=== PATIENT | male | born 1970 | race Caucasian/White ===

== ENCOUNTER 2023-11-01 10:27 | Emergency (ER) | payer OTHER, SELFPAY ==
[2023-11-01 10:30] VITALS: BP 114/82
[2023-11-01 11:15] VITALS: BMI 32.4
--- NOTE | 2023-11-01 11:29 | ED.GENMED ---
History of Present Illness
General
Chief Complaint: Musculo-Skeletal Complaint
Time Seen by Provider: 11/01/23 10:57
Travel History
Have you had any contact with someone who has COVID-19?: No
Do you have any symptoms of coronavirus? Fever > 100 degrees, chills, cough, shortness of breath, sore throat, loss of taste or smell, muscle aches, or headache?: No
History of Present Illness
History of Present Illness:
53-year-old male presents to the emergency department for evaluation of left anterior chest wall pain after a fall 3 days ago. States he fell from the back of a truck landing on his left side and left elbow. He has no elbow or shoulder pain
currently. Pain is worse with deep breathing. Denies any hemoptysis or dyspnea. No recent fevers or chills. Last night took 30 mg of oxycodone with mild pain relief.
Past History
Past History
ED Past Medical History: Psychiatric (Bipolar)
ED Past Surgical History: Orthopedic
Social History
Tobacco: Smoker
Alcohol: None
Drug: Marijuana
Personal: Single
Living: alone
Review of Systems
Review of Systems
Allergies reviewed?: Yes
All Other Systems: ROS reviewed and negative except as documented in HPI and ROS
Phy Exam
Physical Exam
Physical Exam:
GEN: Well appearing, NAD, WDWN
HEENT: Oral mucosa moist, no scleral icterus
Cardiac: Regular rate
Lung: No respiratory distress, no tachypnea, lungs CTAB
Chest: Tenderness to the L anterior chest wall, midclavicular line, inferior to the chest. Normal chest wall movement.
MSK: No gross deformity or injuries
Skin: Good color, no pallor or jaundice, no rashes
Neuro: AO x3, moves all extremities freely
Psych: Calm, cooperative
Course
Orders/Labs/Results
Orders:
Orders
11/01/23 10:33
Ribs, Left 3 View W/PA Chest CR [CR Ribs-left 3 Vw W/pa Chest] Urgent
Comment:
Reason For Exam: pain after a fall
Vital Signs
Initial and Last Documented VS:
Initial Vital Signs
Temp Pulse Resp BP Pulse Ox
98.3 F 99 20 114/82 100
11/01/23 10:30 11/01/23 10:30 11/01/23 10:30 11/01/23 10:30 11/01/23 10:30
Last Documented Vital Signs
Temp Pulse Resp BP Pulse Ox
98.3 F 75 18 114/82 97
11/01/23 10:30 11/01/23 11:26 11/01/23 11:26 11/01/23 10:30 11/01/23 11:26
MDM/Problems Addressed
MDM/Problems Addressed:
Independent rotation of patient's x-rays negative for osseous abnormality or pulmonary contusion. Discussed supportive care for rib contusion
*Critical Care Note
Total Time (30-74mins, 75-104mins- exclusive of procedures): Not Applicable
ED Attending Note
-
Portions of this chart may have been created with voice recognition software.� Occasional wrong word or��sound alike� substitutions may have occurred due to the inherent limitations of voice recognition software.
Discharge Plan
Departure
Patient Disposition: Home (Routine Discharge)
Date of Disposition: 11/01/23
Time of Disposition: 11:31
Patient with high blood pressure during this ER visit?: No
Discharge Problem:
Chest wall contusion
Instructions: How to Use an Incentive Spirometer, Blunt Chest Trauma ED
Prescriptions:
New
oxycodone 5 mg tablet
5 mg PO Q8H PRN (Reason: Pain) Qty: 8 0RF
methocarbamol 750 mg tablet
750 - 1,500 mg PO HS Qty: 20 0RF
No Action
Depakote
750 mg PO HS
Depakote
125 mg PO AMHS
Effexor XR
300 mg PO AMHS
Xanax
2 mg PO DAILY
lithium carbonate
900 mg PO HS
prednisone 10 mg Tablet
See Rx Instructions .ROUTE .COMPLEX Qty: 30 0RF
Rx Instructions:
Take By Mouth:
40 mg daily x3 days, 30 mg daily x3 days,
20 mg daily x3 days, 10 mg daily x3 days.
tramadol 50 mg tablet
50 mg PO Q6H PRN (Reason: pain) Qty: 14 0RF
hydrocodone-acetaminophen 5-325 mg tablet
1 tab PO Q4H PRN (Reason: pain) Qty: 4 0RF
cyclobenzaprine 10 mg tablet
10 mg PO TID PRN (Reason: muscle spasm/pain) Qty: 14 0RF
ibuprofen 600 mg tablet
600 mg PO TID PRN (Reason: fever or pain) Qty: 20 0RF
acetaminophen [Pain Relief (acetaminophen)] 500 mg tablet
1,000 mg PO TID Qty: 20 0RF
Referrals:
Tima Ramirez DO [Family Provider] -
Stand Alone Forms: Return to Work
Interventions
Interventions:
*Risk Screen - Suicide Last Done: 11/01/23 11:16
*General Assessment Last Done: 11/01/23 11:16
*Neglect/Abuse Screening Last Done: 11/01/23 11:16
ED- Fall Risk Assessment Last Done: 11/01/23 11:16
*ED COVID-19 Vaccine History Last Done: 11/01/23 11:16
*Nursing Disposition Last Done: 11/01/23 11:43
ED-Musculoskeletal Assessment Last Done: 11/01/23 11:19
Discharge Date and Time
Discharge Date/Time: 11/01/23 11:45
Print Language: DOMINICAN
== END 2023-11-01 11:45 | disposition home or self-care (01) ==
LOC: EMR 10:27
PROVIDERS: EMERGENCY PHYSICIAN Student in an Organized Health Care Education/Training Program; FAMILY PHYSICIAN Family Medicine
DX: S20.219A Contusion of unspecified front wall of thorax, initial encounter (principal); W17.89XA Other fall from one level to another, initial encounter; F17.200 Nicotine dependence, unspecified, uncomplicated
CPT/HCPCS: 99283; 71101

== ENCOUNTER → 2023-11-14 08:59 | Outpatient (REF) | payer OTHER, SELFPAY | LOC: RAD 08:59 | PROVIDERS: ATTENDING PHYSICIAN Family Medicine | DX: R07.81 Pleurodynia (principal) | CPT/HCPCS: 71101 ==

== ENCOUNTER → 2023-11-23 07:27 | Outpatient (REF) | payer OTHER, SELFPAY ==
[2023-11-23 08:34] LABS: % Eosinophils 3.5 % (0-6); % Immature Granulocytes 0.3 % (0-0.5); % Lymphocytes 38.1 % (20.5-51.1); % Monocytes 8.7 % (1.7-9.3); % Neutrophils 48.4 % (42.2-75.2); Absolute Basophils 0.1 10^3/uL (0-0.2); Absolute Eosinophils 0.2 10^3/uL (0-0.7); Absolute Lymphocytes 2.2 10^3/uL (1.2-3.4); Absolute Monocytes 0.5 10^3/uL (0.1-0.6); Absolute Neutrophils 2.8 10^3/uL (1.4-6.5); Hemoglobin 14.8 g/dL (13.0-18.0); Mean Corp Hgb Conc. 35.2 g/dL (33.0-37.0); Mean Corpuscular Hgb 31.8 pg (27.0-31.0); Mean Corpuscular Volume 90.3 fL (80.0-94.0); Mean Platelet Volume 11.3 fL (7.4-10.4); Nucleated Red Blood Cells % 0 % (-); Platelet Count 245 10^3/uL (130-400); Red Blood Cell Count 4.65 10^6/uL (4.70-6.10); Red Cell Dist. Width 11.9 % (11.5-14.5); White Blood Cell Count 5.8 10^3/uL (4.8-10.8)
[2023-11-23 08:42] LABS: Depakane 42.6 ug/ml (50.0-120.0)
[2023-11-23 08:56] LABS: ALT (SGPT) 19 U/L (0-50); AST (SGOT) 23 U/L (17-59); Albumin 4.7 g/dl (3.5-5.0); Alkaline Phosphatase 90 U/L (38-126); Blood Urea Nitrogen 11 mg/dl (9-20); Calcium 10.2 mg/dl (8.4-10.2); Carbon Dioxide 30 mmol/L (22-30); Chloride 100 mmol/L (98-107); Glucose 99 mg/dl (70-99); HDL Cholesterol 55 mg/dl; LDL Cholesterol, Calculated 138 mg/dl; Lithium 0.9 mmol/L (0.6-1.2); Potassium 4.6 mmol/L (3.5-5.1); Sodium 138 mmol/L (135-145); Total Bilirubin 0.8 mg/dl (0.2-1.3); Total Cholesterol 251 mg/dl (50-199); Total Protein 7.7 g/dl (6.3-8.2); Triglyceride 293 mg/dl (10-149); Very Low Density Lipoprotein 58 mg/dl (0-30); eGFR > 60.00
[2023-11-23 09:24] LABS: TSH 1.34 uIU/ml (0.47-4.68)
[2023-11-23 09:52] LABS: Glycohemoglobin (HgbA1c) 4.9 % (4.0-5.6)
== END ==
LOC: REG 07:27
PROVIDERS: ATTENDING PHYSICIAN Psychiatry & Neurology Psychiatry; FAMILY PHYSICIAN Family Medicine
DX: Z79.899 Other long term (current) drug therapy (principal)
CPT/HCPCS: 36415; 80053; 80061; 80164; 80178; 83036; 84443; 85025

== ENCOUNTER 2023-11-23 08:03 | Emergency (ER) | payer OTHER, SELFPAY ==
[2023-11-23 08:06] VITALS: BP 131/73
--- NOTE | 2023-11-23 08:09 | ED.GENMED ---
History of Present Illness
General
Chief Complaint: Fall
Time Seen by Provider: 11/23/23 08:09
Travel History
Have you had any contact with someone who has COVID-19?: No
Do you have any symptoms of coronavirus? Fever > 100 degrees, chills, cough, shortness of breath, sore throat, loss of taste or smell, muscle aches, or headache?: No
History of Present Illness
History of Present Illness:
HPI: Patient was seen in the ED at [place] on 11/01/2023 after a fall in which he injured the chest wall on 10/29/2023. [facility] has had 2 rib series/chest x-ray which showed old fractures. The pain persists.. He
states he has been taking narcotic analgesia but no longer is taking tramadol or oxycodone. He was also on a muscle relaxer but also states he is no longer taking this. He sleeps in his car and feels that this is a contributing factor for ongoing
pain.
EXAM:
GENERAL: Well appearing in no distress
CERVICAL SPINE: No midline c-spine tenderness with excellent AROM
HEAD: No evidence of craniofacial trauma
CHEST: There is posterior lateral chest wall tenderness, normal heart sounds
LUNGS: Equal lung sounds, no respiratory distress, no abnormal lung sounds heard
ABDOMEN: No abdominal tenderness, no peritoneal signs
EXTREMITIES: Normal active range of motion, no tenderness
NEURO: Excellent strength all extremities, appropriate mental status, normal speech/language
TIME OF INITIAL ENCOUNTER: 8:30 AM
NUMBER AND COMPLEXITY OF PROBLEMS ADDRESSED AT THE ENCOUNTER
� Chronic conditions affecting care: Bipolar disorder, PTSD
� Acute Exacerbation and/or Progression of Chronic Illness: This is a subacute problem
� Differential Diagnosis includes: Rib fractures, chest wall contusion, chronic pain syndrome, costochondritis
AMOUNT AND/OR COMPLEXITY OF DATA TO BE REVIEWED AND ANALYZED
� I performed an independent evaluation of and my interpretation is:
EKG:
CT:
X-rays:
Laboratory Studies:
Other:
� Review of other/old records: Reviewed x-rays�on 421 multiple old healed rib fractures were seen on the left side however radiology cannot rule out a superimposed acute fracture. The patient also had a chest/rib x-ray 11/14/2023
that again showed old healed left rib fractures. Of note, patient had 2 ED visits last year and had chest wall imaging plain films in December 2022 and January 2023.
� Clinical information was obtained by an independent historian: None needed
� Prescriptions/Medications Considered but not given: Consider narcotic analgesia however the symptoms started 3-1/2 weeks ago and has already been on narcotic
� Further testing considered but not performed: See below
RISK OF COMPLICATIONS AND/OR MORBIDITY OR MORTALITY OF PATIENT MANAGEMENT
� Social determinants of health affecting care: The patient is homeless 'and has no money', however he does have insurance
� Discussion with other providers:
� Escalation of care including admission/observation vs risk of discharge considered: I reviewed old records. He has had 2 imaging studies in the past. The initial incident occurred 3-1/2 weeks ago therefore we will hold off on
any further imaging at this time. Breath sounds are clear and equal with room air sats of 98%. Will try lidocaine patch and Flexeril.
Past History
Past History
ED Past Medical History: Psychiatric (Bipolar)
ED Past Surgical History: Orthopedic
Social History
Tobacco: Smoker
Alcohol: None
Drug: Marijuana
Personal: Single
Living: alone
Phy Exam
Physical Exam
Physical Exam:
See HPI
Course
Orders/Labs/Results
Orders:
Orders
11/23/23 08:35
Cyclobenzaprine HCl [Flexeril] 10 mg PO NOW STA
Lidocaine [Lidocaine 4% Patch] 1 patch TOPICAL NOW STA
Vital Signs
Initial and Last Documented VS:
Initial Vital Signs
Temp Pulse Resp BP Pulse Ox
98.1 F 60 16 131/73 98
11/23/23 08:06 11/23/23 08:06 11/23/23 08:06 11/23/23 08:06 11/23/23 08:06
Last Documented Vital Signs
Temp Pulse Resp BP Pulse Ox
98.1 F 60 16 131/73 98
11/23/23 08:06 11/23/23 08:06 11/23/23 08:06 11/23/23 08:06 11/23/23 08:06
*Critical Care Note
Total Time (30-74mins, 75-104mins- exclusive of procedures): Not Applicable
ED Attending Note
-
Portions of this chart may have been created with voice recognition software.� Occasional wrong word or��sound alike� substitutions may have occurred due to the inherent limitations of voice recognition software.
Discharge Plan
Departure
Patient Disposition: Home (Routine Discharge)
Date of Disposition: 11/23/23
Time of Disposition: 08:36
Patient with high blood pressure during this ER visit?: Yes
Discharge Problem:
Chest wall pain
Instructions: Blunt Chest Trauma (DC)
Prescriptions:
New
cyclobenzaprine 10 mg tablet
10 mg PO BID PRN (Reason: pain) Qty: 14 0RF
lidocaine [Lidoderm] 5 % adhesive patch,medicated
1 patch topical DAILY Qty: 15 0RF
No Action
Depakote
750 mg PO HS
Depakote
125 mg PO AMHS
Effexor XR
300 mg PO AMHS
Xanax
2 mg PO DAILY
lithium carbonate
900 mg PO HS
prednisone 10 mg Tablet
See Rx Instructions .ROUTE .COMPLEX Qty: 30 0RF
Rx Instructions:
Take By Mouth:
40 mg daily x3 days, 30 mg daily x3 days,
20 mg daily x3 days, 10 mg daily x3 days.
tramadol 50 mg tablet
50 mg PO Q6H PRN (Reason: pain) Qty: 14 0RF
hydrocodone-acetaminophen 5-325 mg tablet
1 tab PO Q4H PRN (Reason: pain) Qty: 4 0RF
cyclobenzaprine 10 mg tablet
10 mg PO TID PRN (Reason: muscle spasm/pain) Qty: 14 0RF
ibuprofen 600 mg tablet
600 mg PO TID PRN (Reason: fever or pain) Qty: 20 0RF
acetaminophen [Pain Relief (acetaminophen)] 500 mg tablet
1,000 mg PO TID Qty: 20 0RF
oxycodone 5 mg tablet
5 mg PO Q8H PRN (Reason: Pain) Qty: 8 0RF
methocarbamol 750 mg tablet
750 - 1,500 mg PO HS Qty: 20 0RF
Activity Restrictions/Additional Instructions:
If you take the lidocaine patches, use only in the daytime and take off at night. Return here if worse. Follow-up your primary care doctor.
Interventions
Interventions:
*Risk Screen - Suicide Last Done: 11/23/23 08:14
*General Assessment Last Done: 11/23/23 08:34
*Neglect/Abuse Screening Last Done: 11/23/23 08:14
ED- Fall Risk Assessment Last Done: 11/23/23 08:14
*ED COVID-19 Vaccine History Last Done: 11/23/23 08:06
ED-Musculoskeletal Assessment Last Done: 11/23/23 08:14
ED- Neurological Assessment Last Done: 11/23/23 08:14
ED-Skin Assessment Last Done: 11/23/23 08:14
Discharge Date and Time
Print Language: WOLOF
[2023-11-23] MEDS: LIDOCAINE 4% PATCH 1 PATCH TOPICAL (08:44)
[2023-11-23] MEDS: FLEXERIL 10 MG PO (08:44)
== END 2023-11-23 08:53 | disposition home or self-care (01) ==
LOC: EMR 08:03
PROVIDERS: EMERGENCY PHYSICIAN Emergency Medicine; FAMILY PHYSICIAN Family Medicine
DX: R07.89 Other chest pain (principal); F17.200 Nicotine dependence, unspecified, uncomplicated; Z59.02 Unsheltered homelessness
CPT/HCPCS: 99283

== ENCOUNTER 2023-12-25 16:06 | Emergency (ER) | payer OTHER, SELFPAY ==
[2023-12-25 16:15] VITALS: BP 120/88
[2023-12-25 17:38] VITALS: BMI 32.8
--- NOTE | 2023-12-25 17:38 | ED.GENMED ---
History of Present Illness
General
Chief Complaint: Swelling
Source: patient
Exam Limitations: none
Time Seen by Provider: 12/25/23 17:28
Travel History
Have you had any contact with someone who has COVID-19?: No
Do you have any symptoms of coronavirus? Fever > 100 degrees, chills, cough, shortness of breath, sore throat, loss of taste or smell, muscle aches, or headache?: No
History of Present Illness
History of Present Illness:
53-year-old male with bilateral leg swelling for weeks. Has been walking significantly. Has been living out of his car. No chest pain shortness of breath fever or other complaints. Seen in urgent care and started on antibiotics for unknown reason
Past History
Past History
ED Past Medical History: Psychiatric (Bipolar)
ED Past Surgical History: Orthopedic
Social History
Tobacco: Smoker
Alcohol: None
Drug: Marijuana
Personal: Single
Living: alone
Review of Systems
Review of Systems
All Other Systems: Not applicable
Constitutional: Denies fever
Respiratory: Reports no symptoms
Cardiac: Reports no symptoms
Phy Exam
Physical Exam
Physical Exam:
GENERAL: Alert and oriented in no apparent distress. Reading a book
EYE: Orbits normal.
NECK: Supple, no thyroid palpable.
ENT: Pharynx without erythema
CARDIAC: Regular rate and rhythm without any obvious murmurs.
LUNGS: Clear breath sounds,normal
ABDOMEN: Soft, without focal tenderness or distention
NEUROLOGICAL: Alert and oriented , grossly non-focal
SKIN: Warm and dry, no rash or lesion, no discoloration, skin intact.
MUSCULOSKELETAL: Mild to moderate lower extremity edema bilaterally. Mildly pitting. No warmth or erythema. No drainage.
PSYCH: Normal and appropriate interaction.
Scores
Heart Failure Risk
Heart Failure Risk Score: Not Applicable
Course
Orders/Labs/Results
Orders:
Orders
12/25/23 17:33
Urinalysis Reflex To Culture Urgent
Pulse Ox/cont/shift [RESP] Stat
Quantity: 1
US Periph Venous LOWER Ext Jose Urgent
Comment:
Reason For Exam: swelling
12/25/23 17:34
Electrocardiogram (*1) Stat
Reason for Study: Other
Other Reason for Exam: chest pain
EKG- Treatment ONCE
CR Chest - 2 Views Urgent
Comment:
Reason For Exam: leg swelling
12/25/23 17:53
Basic Metabolic Panel Urgent
Complete Blood Count/With Diff Urgent
TSH Reflex To Free T4 Urgent
Abnormal Lab Results
12/25/23
17:53
RBC 3.66 L 10^6/uL
(4.70-6.10)
Hgb 11.7 L g/dL
(13.0-18.0)
Hct 33.2 L %
(39.0-52.0)
MCH 32.0 H pg
(27.0-31.0)
MPV 10.9 H fL
(7.4-10.4)
BUN 23 H mg/dl
(9-20)
12/25/23 17:53
12/25/23 17:53
Vital Signs
Initial and Last Documented VS:
Initial Vital Signs
Temp Pulse Resp BP Pulse Ox
98.1 F 94 18 120/88 95
12/25/23 16:15 12/25/23 16:15 12/25/23 16:15 12/25/23 16:15 12/25/23 16:15
Last Documented Vital Signs
Temp Pulse Resp BP Pulse Ox
98.1 F 67 18 138/70 95
12/25/23 16:15 12/25/23 19:10 12/25/23 16:15 12/25/23 19:10 12/25/23 19:10
MDM/Problems Addressed
Differential Diagnosis Includes:
Patient nontoxic in no distress. Differential bilateral edema. Doubt bilateral DVT. Renal function thyroids urine for protein
*Radiology
Radiology exam reviewed: preliminary read by ED provider (Negative chest x-ray) and radiology read reviewed (neg us)
*Pulse Oximetry
Patient hypoxic: no
*EKG
Interpreted by ED Provider?: Yes
Interpretation: normal
Comparison EKG: no comparison EKG present
Heart Rate: 65
Rate: normal
Rhythm: sinus
[place]: normal axis
Interval: normal interval
QRS Pattern: normal QRS
Ischemia: no ischemia
*Critical Care Note
Total Time (30-74mins, 75-104mins- exclusive of procedures): Not Applicable
Update Note
Update Note:
Assuming leg ultrasounds are negative, patient's peripheral edema is likely related to the heat, all walking a lot, having his feet down below in the car. Nothing supports serious etiology. Not thrilled with the idea of starting a diuretic.
Recommended compression stockings and follow-up. Patient is comfortable with this approach. He apparently did mention to the nurse or was positive on the screen for suicidal ideation. He states he gets help for this has no plan or intent promises
that he would not do anything and would call the hotline with any issues. He states 'I love my daughter too much '. Do not feel this warrants emergent crisis intervention.
ED Attending Note
-
Portions of this chart may have been created with voice recognition software.� Occasional wrong word or��sound alike� substitutions may have occurred due to the inherent limitations of voice recognition software.
Discharge Plan
Departure
Patient Disposition: Home (Routine Discharge)
Date of Disposition: 12/25/23
Time of Disposition: 19:27
Patient with high blood pressure during this ER visit?: Yes
Discharge Problem:
Peripheral edema
Instructions: Dependent Edema (DC), BLOOD PRESSURE
Prescriptions:
No Action
Depakote
750 mg PO HS
Depakote
125 mg PO AMHS
Effexor XR
300 mg PO AMHS
Xanax
2 mg PO DAILY
lithium carbonate
900 mg PO HS
prednisone 10 mg Tablet
See Rx Instructions .ROUTE .COMPLEX Qty: 30 0RF
Rx Instructions:
Take By Mouth:
40 mg daily x3 days, 30 mg daily x3 days,
20 mg daily x3 days, 10 mg daily x3 days.
tramadol 50 mg tablet
50 mg PO Q6H PRN (Reason: pain) Qty: 14 0RF
hydrocodone-acetaminophen 5-325 mg tablet
1 tab PO Q4H PRN (Reason: pain) Qty: 4 0RF
cyclobenzaprine 10 mg tablet
10 mg PO TID PRN (Reason: muscle spasm/pain) Qty: 14 0RF
ibuprofen 600 mg tablet
600 mg PO TID PRN (Reason: fever or pain) Qty: 20 0RF
acetaminophen [Pain Relief (acetaminophen)] 500 mg tablet
1,000 mg PO TID Qty: 20 0RF
oxycodone 5 mg tablet
5 mg PO Q8H PRN (Reason: Pain) Qty: 8 0RF
methocarbamol 750 mg tablet
750 - 1,500 mg PO HS Qty: 20 0RF
cyclobenzaprine 10 mg tablet
10 mg PO BID PRN (Reason: pain) Qty: 14 0RF
lidocaine [Lidoderm] 5 % adhesive patch,medicated
1 patch topical DAILY Qty: 15 0RF
Referrals:
Tima Ramirez DO [Family Provider] - Follow up in 2-3 days
Interventions
Interventions:
*Risk Screen - Suicide Last Done: 12/25/23 17:38
*General Assessment Last Done: 12/25/23 17:38
*Neglect/Abuse Screening Last Done: 12/25/23 17:38
ED- Fall Risk Assessment Last Done: 12/25/23 17:38
*ED COVID-19 Vaccine History Last Done: 12/25/23 16:15
ED- Cardiac Assessment Last Done: 12/25/23 17:38
ED- Pulmonary Assessment Last Done: 12/25/23 17:38
ED-Skin Assessment Last Done: 12/25/23 17:38
Discharge Date and Time
Print Language: WALLISIAN
[2023-12-25 17:39] VITALS: BP 126/71
[2023-12-25 18:02] LABS: % Basophils 0.5 % (0-2); % Eosinophils 3.1 % (0-6); % Immature Granulocytes 0.5 % (0-0.5); % Lymphocytes 31.8 % (20.5-51.1); % Monocytes 9.3 % (1.7-9.3); % Neutrophils 54.8 % (42.2-75.2); Absolute Eosinophils 0.2 10^3/uL (0-0.7); Absolute Lymphocytes 1.7 10^3/uL (1.2-3.4); Absolute Monocytes 0.5 10^3/uL (0.1-0.6); Hematocrit 33.2 % (39.0-52.0); Hemoglobin 11.7 g/dL (13.0-18.0); Mean Corp Hgb Conc. 35.2 g/dL (33.0-37.0); Mean Corpuscular Volume 90.7 fL (80.0-94.0); Mean Platelet Volume 10.9 fL (7.4-10.4); Nucleated Red Blood Cells % 0 % (-); Platelet Count 181 10^3/uL (130-400); Red Blood Cell Count 3.66 10^6/uL (4.70-6.10); Red Cell Dist. Width 12.3 % (11.5-14.5); White Blood Cell Count 5.5 10^3/uL (4.8-10.8)
[2023-12-25 18:20] LABS: Blood Urea Nitrogen 23 mg/dl (9-20); Calcium 9.8 mg/dl (8.4-10.2); Carbon Dioxide 28 mmol/L (22-30); Chloride 104 mmol/L (98-107); Estimated Creatinine Clearance 101 ml/min; Glucose 93 mg/dl (70-99); Potassium 4.1 mmol/L (3.5-5.1); Sodium 139 mmol/L (135-145); eGFR > 60.00
[2023-12-25 18:51] LABS: TSH Reflex To Free T4 0.71 uIU/ml (0.47-4.68)
[2023-12-25 19:10] VITALS: BP 138/70
== END 2023-12-25 19:40 | disposition home or self-care (01) ==
LOC: EMR 16:06
PROVIDERS: EMERGENCY PHYSICIAN Emergency Medicine; FAMILY PHYSICIAN Family Medicine
DX: R60.0 Localized edema (principal); F17.200 Nicotine dependence, unspecified, uncomplicated; R03.0 Elevated blood-pressure reading, without diagnosis of hypertension; Z59.02 Unsheltered homelessness
CPT/HCPCS: 99285; 71046; 80048; 84443; 85025; 93005; 93970

== ENCOUNTER → 2024-01-11 10:24 | Outpatient (REF) | payer OTHER, SELFPAY ==
[2024-01-11 11:29] LABS: % Eosinophils 3.7 % (0-6); % Immature Granulocytes 0.5 % (0-0.5); % Lymphocytes 35.9 % (20.5-51.1); % Monocytes 6.2 % (1.7-9.3); % Neutrophils 52.7 % (42.2-75.2); Absolute Basophils 0.1 10^3/uL (0-0.2); Absolute Eosinophils 0.2 10^3/uL (0-0.7); Absolute Lymphocytes 2.3 10^3/uL (1.2-3.4); Absolute Monocytes 0.4 10^3/uL (0.1-0.6); Absolute Neutrophils 3.3 10^3/uL (1.4-6.5); Hematocrit 38.8 % (39.0-52.0); Hemoglobin 13.3 g/dL (13.0-18.0); Mean Corp Hgb Conc. 34.3 g/dL (33.0-37.0); Mean Corpuscular Hgb 32.1 pg (27.0-31.0); Mean Corpuscular Volume 93.7 fL (80.0-94.0); Mean Platelet Volume 11.3 fL (7.4-10.4); Nucleated Red Blood Cells % 0 % (-); Platelet Count 184 10^3/uL (130-400); Red Blood Cell Count 4.14 10^6/uL (4.70-6.10); Red Cell Dist. Width 12.6 % (11.5-14.5); White Blood Cell Count 6.3 10^3/uL (4.8-10.8)
[2024-01-11 11:55] LABS: Iron 81 ug/dl (49-181)
[2024-01-11 11:59] LABS: NT-proBNP 32.7 pg/ml
[2024-01-11 12:04] LABS: Percent Saturation 25 % (20-50); Total Iron Binding Capacity 312 ug/dl (261-462)
[2024-01-11 13:00] LABS: Folate 5.4 ng/ml (2.76-20)
[2024-01-11 14:00] LABS: Vitamin B12 623 pg/ml (239-931)
== END ==
LOC: REG 10:24
PROVIDERS: ATTENDING PHYSICIAN Family Medicine
DX: R60.0 Localized edema (principal); D64.9 Anemia, unspecified
CPT/HCPCS: 36415; 82607; 82728; 82746; 83540; 83550; 83880; 85025

== ENCOUNTER 2024-03-01 10:25 | Emergency (ER) | payer OTHER, SELFPAY ==
[2024-03-01 10:51] VITALS: BP 128/82
--- NOTE | 2024-03-01 11:05 | ED.GENMED ---
History of Present Illness
<Ynes Grijalva PA-C - Last Filed: 03/01/24 13:56>
General
Chief Complaint: Swelling
Source: patient
Exam Limitations: none
Time Seen by Provider: 03/01/24 11:05
Nursing documentation reviewed up to this point in time: agreed with
History of Present Illness
History of Present Illness:
This is a 54 y/o male with a PMH of bipolar disorder, PTSD, tobacco use disorder, presenting to the emergency department today with concerns of bilateral leg swelling that has been going on for the past few months. Patient states that this started
a few months after he started living in his car. 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 Patient notes some discomfort with ambulating but denies leg redness, warmth, fevers or chills, calf pain. He
denies nausea, vomiting, dysuria, abdominal pain, chest pain, shortness of breath. Aside from arthritis and psychiatric illness, patient denies chronic medical conditions such as HTN, diabetes etc. Patient states that he has been elevating his legs
every night without relief. Patient states that he has not tried compression leggings because he believes they are too tight and uncomfortable. Patient denies any rashes.
Past History
<Ynes Grijalva PA-C - Last Filed: 03/01/24 13:56>
Past History
ED Past Medical History: Psychiatric (Bipolar)
ED Past Surgical History: Orthopedic
Social History
Tobacco: Smoker
Alcohol: None
Drug: Marijuana
Personal: Single
Living: alone
Review of Systems
<DEDE Muhammad Last Filed: 03/01/24 13:56>
Review of Systems
All Other Systems: ROS reviewed and negative except as documented in HPI and ROS
Phy Exam
<Ynes Grijalva PA-C - Last Filed: 03/01/24 13:56>
Physical Exam
Physical Exam:
General: Patient is well appearing and in no acute distress; non-toxic
Skin: Warm and dry, no rashes or lesions, no erythema. Brisk capillary refill bilaterally.
Head: Normocephalic, atraumatic
Eyes: Sclera non-icteric. EOMs intact.
Cardiac: Regular rate and rhythm, no murmurs.
Peripheral Vascular: Bilateral lower extremity edema, mild pitting on the dorsum of the feet bilaterally.
Pulm: Normal respiratory effort, no wheezes, rales, crackles bilaterally.
Musculoskeletal: Full ROM of bilateral lower extremities.
Neuro: CN II-XII intact, no focal neurologic deficits.
Psychiatric: Appropriate mood and affect.
Scores
<Ynes Grijalva PA-C - Last Filed: 03/01/24 13:56>
Heart Failure Risk
Heart Failure Risk Score: Not Applicable
Course
<Ynes Grijalva PA-C - Last Filed: 03/01/24 13:56>
Orders/Labs/Results
Orders:
Orders
03/01/24 11:01
CMP [Comprehensive Metabolic Panel] Urgent
Complete Blood Count/With Diff Urgent
NT-proBNP Urgent
TSH Reflex To Free T4 Urgent
Comment: ADD ON
03/01/24 12:01
Add On- LAB Urgent
Tests Added?: TSH reflex to T4
03/01/24 12:29
Urinalysis Reflex To Culture Urgent
Date Specimen was Collected: 03/01/24
Time Specimen was Collected: 12:18
Abnormal Lab Results
03/01/24
11:01
RBC 4.05 L 10^6/uL
(4.70-6.10)
Hgb 12.7 L g/dL
(13.0-18.0)
Hct 37.7 L %
(39.0-52.0)
MCH 31.4 H pg
(27.0-31.0)
MPV 10.8 H fL
(7.4-10.4)
Potassium 5.3 H mmol/L
(3.5-5.1)
Carbon Dioxide 32 H mmol/L
(22-30)
03/01/24 11:01
03/01/24 11:01
Vital Signs
Initial and Last Documented VS:
Initial Vital Signs
Temp Pulse Resp BP Pulse Ox
98.0 F 73 16 128/82 96
03/01/24 10:51 03/01/24 10:51 03/01/24 10:51 03/01/24 10:51 03/01/24 10:51
Last Documented Vital Signs
Temp Pulse Resp BP Pulse Ox
98.0 F 61 16 119/72 98
03/01/24 10:51 03/01/24 12:32 03/01/24 12:32 03/01/24 12:32 03/01/24 12:32
<Clair Rivera, DO - Last Filed: 03/01/24 13:33>
Orders/Labs/Results
Orders:
Orders
03/01/24 11:01
CMP [Comprehensive Metabolic Panel] Urgent
Complete Blood Count/With Diff Urgent
NT-proBNP Urgent
TSH Reflex To Free T4 Urgent
Comment: ADD ON
03/01/24 12:01
Add On- LAB Urgent
Tests Added?: TSH reflex to T4
03/01/24 12:29
Urinalysis Reflex To Culture Urgent
Date Specimen was Collected: 03/01/24
Time Specimen was Collected: 12:18
Abnormal Lab Results
03/01/24
11:01
RBC 4.05 L 10^6/uL
(4.70-6.10)
Hgb 12.7 L g/dL
(13.0-18.0)
Hct 37.7 L %
(39.0-52.0)
MCH 31.4 H pg
(27.0-31.0)
MPV 10.8 H fL
(7.4-10.4)
Potassium 5.3 H mmol/L
(3.5-5.1)
Carbon Dioxide 32 H mmol/L
(22-30)
03/01/24 11:01
03/01/24 11:01
Vital Signs
Initial and Last Documented VS:
Initial Vital Signs
Temp Pulse Resp BP Pulse Ox
98.0 F 73 16 128/82 96
03/01/24 10:51 03/01/24 10:51 03/01/24 10:51 03/01/24 10:51 03/01/24 10:51
Last Documented Vital Signs
Temp Pulse Resp BP Pulse Ox
98.0 F 61 16 119/72 98
03/01/24 10:51 03/01/24 12:32 03/01/24 12:32 03/01/24 12:32 03/01/24 12:32
Gladyslt;Ynes Grijalva PA-C - Last Filed: 03/01/24 13:56>
MDM/Problems Addressed
Differential Diagnosis Includes:
ddx include CHF, peripheral vascular disease, chronic venous stasis, nephrotic syndrome, DVT, cellulitis, hypothyroidism
MDM/Problems Addressed:
Bilateral leg swelling
This is a 54 y/o male with a PMH of bipolar disorder, PTSD presenting to the emergency department today with concerns of bilateral leg swelling that has been going on for the past few months. Patient was most recently seen in our ER on 12/25/23 and
had a unremarkable workup, his leg swelling was attributed to chronic venous stasis. Patient was recommended to use compression stockings, patient states that compression stockings are to tight for him. Today, he continues with the swelling and
denies CP, shortness of breath, urinary changes, other associated symptoms. His CBC and CMP are unremarkable. Urinalysis does not show any proteinuria. I suspect patient's swelling is a result of chronic venous stasis. Will start on short course of
lasix and have him follow up with his primary care provider, did also give him referral for [facility] considering patient has not been happy with his care recently. Patient stable for discharge, return precautions discussed.
Chronic conditions affecting care:
PTSD, bipolar disorder
<Ynes Grijalva PA-C - Last Filed: 03/01/24 13:56>
*Pulse Oximetry
Patient hypoxic: no
*Critical Care Note
Total Time (30-74mins, 75-104mins- exclusive of procedures): Not Applicable
Data Reviewed
Review of Other/Old Records Reveals: Records (reviewed ER physician documentation from 12/25/23, reviewed documentation from 11/23/23)
Source: patient and records
Further Testing Considered But Not Given:
Considered CXR however patient denies shortness of breath and has clear lung sounds on exam
<Ynes Grijalva PA-C - Last Filed: 03/01/24 13:56>
Patient Management
Social determinants of health affecting care: Living situation and Poor social support
ED Attending Note
<Ynes Grijalva PA-C - Last Filed: 03/01/24 13:56>
-
Portions of this chart may have been created with voice recognition software.� Occasional wrong word or��sound alike� substitutions may have occurred due to the inherent limitations of voice recognition software.
<Clair Rivera DO - Last Filed: 03/01/24 13:33>
ED Attending Note
Patient seen and examined by attending physician: Yes
I performed the substantive portion of visit, reviewed & personally made and approve the management plan that is documented in note by myself or STEVEN.: Yes
I performed a history and physical exam of patient and discussed management with resident, I reviewed resident's note and agree with documented findings and plan of care.: Yes
ED Attending Note:
Patient seen and examined at bedside, 54-year-old male with history of homelessness and lower extremity swelling presenting for lower extremity swelling. Patient reports he was at a lunch and prior to arrival and someone noticed that his legs were
swollen. Patient reports his legs been swollen for the past 3 months. Patient previously been seen in the hospital in December, had unremarkable workup with negative DVT ultrasound and chest x-ray imaging. Patient was told to elevate his legs and use
compression socks for dependent edema. Patient reports that he lives in his car, sleeps with his legs on the dashboard. He has not followed primary care doctor chest pain difficulty breathing. Denies numbness or tingling to his extremities.
Denies fever or systemic symptoms.
Vital signs are normal. On exam, patient has symmetrical swelling to bilateral lower extremities. +1-2 pitting edema. No significant reproducible tenderness. No erythema or warmth. Distal sensation and pulses intact. Patient initially seen by
STEVEN, screening laboratory analysis unremarkable. Patient without any respiratory symptoms, unremarkable pulmonary centimeters, without concern for CHF. Again the swelling is symmetric, no DVT risk factors, recent negative DVT ultrasound, without
concern for DVT. No erythema or cellulitic changes, again without concern for infection. Continue to suspect dependent edema. Conversation had with patient regarding importance of elevation. Patient has been noncompliant with compression socks.
Advised using compression socks. Patient would like to proceed with using a diuretic. Explained that we will prescribe for 1 week, however will require to follow-up with primary care doctor. Patient reports he will do so. Otherwise feel stable
for discharge. Return precautions discussed and patient verbalized understanding.
Discharge Plan
Departure
Patient Disposition: Home (Routine Discharge)
Date of Disposition: 03/01/24
Time of Disposition: 13:24
Patient with high blood pressure during this ER visit?: Yes
Condition: Good
Discharge Problem:
Localized swelling, mass and lump, lower limb, bilateral
Instructions: Swelling, BLOOD PRESSURE
Prescriptions:
New
furosemide [Lasix] 20 mg tablet
20 mg PO DAILY 7 Days Qty: 7 0RF
No Action
Depakote
750 mg PO HS
Depakote
125 mg PO AMHS
Effexor XR
300 mg PO AMHS
Xanax
2 mg PO DAILY
lithium carbonate
900 mg PO HS
prednisone 10 mg Tablet
See Rx Instructions .ROUTE .COMPLEX Qty: 30 0RF
Rx Instructions:
Take By Mouth:
40 mg daily x3 days, 30 mg daily x3 days,
20 mg daily x3 days, 10 mg daily x3 days.
tramadol 50 mg tablet
50 mg PO Q6H PRN (Reason: pain) Qty: 14 0RF
hydrocodone-acetaminophen 5-325 mg tablet
1 tab PO Q4H PRN (Reason: pain) Qty: 4 0RF
cyclobenzaprine 10 mg tablet
10 mg PO TID PRN (Reason: muscle spasm/pain) Qty: 14 0RF
ibuprofen 600 mg tablet
600 mg PO TID PRN (Reason: fever or pain) Qty: 20 0RF
acetaminophen [Pain Relief (acetaminophen)] 500 mg tablet
1,000 mg PO TID Qty: 20 0RF
oxycodone 5 mg tablet
5 mg PO Q8H PRN (Reason: Pain) Qty: 8 0RF
methocarbamol 750 mg tablet
750 - 1,500 mg PO HS Qty: 20 0RF
cyclobenzaprine 10 mg tablet
10 mg PO BID PRN (Reason: pain) Qty: 14 0RF
lidocaine [Lidoderm] 5 % adhesive patch,medicated
1 patch topical DAILY Qty: 15 0RF
Referrals:
[facility] [Provider Group] - Call in 1-3 days for appt
Activity Restrictions/Additional Instructions:
Please follow up with your primary care provider or the [facility].
Please start taking Lasix. Please take one tablet once daily for one week.
Please use compression leggins and continue to elevate your legs.
Return emergency department should you experience shortness of breath, chest pain, lightheadedness, changes in your urinary function, dizziness, confusion, difficulty speaking, fevers or chills, redness or rashes, or any other symptoms concerning to
you.
Interventions
Interventions:
*Risk Screen - Suicide Last Done: 03/01/24 11:15
*General Assessment Last Done: 03/01/24 10:51
*Neglect/Abuse Screening Last Done: 03/01/24 11:15
ED- Fall Risk Assessment Last Done: 03/01/24 11:15
*ED COVID-19 Vaccine History Last Done: 03/01/24 10:51
*Nursing Disposition Last Done: 03/01/24 13:37
ED- Cardiac Assessment Last Done: 03/01/24 11:15
ED- Pulmonary Assessment Last Done: 03/01/24 11:15
ED-Skin Assessment Last Done: 03/01/24 11:15
Discharge Date and Time
Discharge Date/Time: 03/01/24 13:37
Print Language: SWEDISH
[2024-03-01 11:19] LABS: % Basophils 0.9 % (0-2); % Eosinophils 4.3 % (0-6); % Immature Granulocytes 0.4 % (0-0.5); % Lymphocytes 33.3 % (20.5-51.1); % Monocytes 7.4 % (1.7-9.3); % Neutrophils 53.7 % (42.2-75.2); Absolute Basophils 0.1 10^3/uL (0-0.2); Absolute Eosinophils 0.2 10^3/uL (0-0.7); Absolute Lymphocytes 1.8 10^3/uL (1.2-3.4); Absolute Monocytes 0.4 10^3/uL (0.1-0.6); Absolute Neutrophils 2.8 10^3/uL (1.4-6.5); Hematocrit 37.7 % (39.0-52.0); Hemoglobin 12.7 g/dL (13.0-18.0); Mean Corp Hgb Conc. 33.7 g/dL (33.0-37.0); Mean Corpuscular Hgb 31.4 pg (27.0-31.0); Mean Corpuscular Volume 93.1 fL (80.0-94.0); Mean Platelet Volume 10.8 fL (7.4-10.4); Nucleated Red Blood Cells % 0 % (-); Platelet Count 183 10^3/uL (130-400); Red Blood Cell Count 4.05 10^6/uL (4.70-6.10); Red Cell Dist. Width 11.7 % (11.5-14.5); White Blood Cell Count 5.3 10^3/uL (4.8-10.8)
[2024-03-01 11:29] VITALS: BP 124/71
[2024-03-01 11:41] LABS: ALT (SGPT) 15 U/L (0-50); AST (SGOT) 19 U/L (17-59); Albumin 4.3 g/dl (3.5-5.0); Alkaline Phosphatase 71 U/L (38-126); Blood Urea Nitrogen 12 mg/dl (9-20); Calcium 10.2 mg/dl (8.4-10.2); Carbon Dioxide 32 mmol/L (22-30); Chloride 104 mmol/L (98-107); Glucose 99 mg/dl (70-99); NT-proBNP 45.8 pg/ml; Potassium 5.3 mmol/L (3.5-5.1); Sodium 139 mmol/L (135-145); Total Bilirubin 0.8 mg/dl (0.2-1.3); Total Protein 6.8 g/dl (6.3-8.2); eGFR > 60.00
[2024-03-01 12:32] VITALS: BP 119/72
[2024-03-01 13:07] LABS: Urine Albumin Negative (Neg - Trace); Urine Bilirubin Negative (Negative); Urine Character Clear (Clear); Urine Color Straw; Urine Glucose Negative (Negative); Urine Ketone Negative (Negative); Urine Leukocyte Negative (Negative); Urine Nitrite Negative (Negative); Urine Occult Blood Negative (Negative); Urine Specific Gravity 1.005 (<1.030); Urine Urobilinogen Negative (Neg - 1+)
== END 2024-03-01 13:37 | disposition home or self-care (01) ==
LOC: EMR 10:25
PROVIDERS: Emergency Medicine; Physician Assistant; EMERGENCY PHYSICIAN Student in an Organized Health Care Education/Training Program; FAMILY PHYSICIAN Family Medicine
DX: R22.43 Localized swelling, mass and lump, lower limb, bilateral (principal); R03.0 Elevated blood-pressure reading, without diagnosis of hypertension; F31.9 Bipolar disorder, unspecified; F17.200 Nicotine dependence, unspecified, uncomplicated; F43.10 Post-traumatic stress disorder, unspecified; Z59.02 Unsheltered homelessness
CPT/HCPCS: 99283; 80053; 81003; 83880; 84443; 85025

== ENCOUNTER → 2024-03-25 10:00 | Outpatient (REF) | payer OTHER, SELFPAY ==
[2024-03-25 11:09] LABS: Depakane 41.6 ug/ml (50.0-120.0)
[2024-03-25 11:26] LABS: ALT (SGPT) 25 U/L (0-50); AST (SGOT) 23 U/L (17-59); Albumin 4.5 g/dl (3.5-5.0); Alkaline Phosphatase 73 U/L (38-126); Blood Urea Nitrogen 15 mg/dl (9-20); Calcium 10.7 mg/dl (8.4-10.2); Carbon Dioxide 32 mmol/L (22-30); Chloride 101 mmol/L (98-107); Glucose 98 mg/dl (70-99); Potassium 4.7 mmol/L (3.5-5.1); Sodium 143 mmol/L (135-145); Total Bilirubin 0.3 mg/dl (0.2-1.3); Total Protein 7.1 g/dl (6.3-8.2); eGFR > 60.00
[2024-03-25 11:27] LABS: Lithium 0.5 mmol/L (0.6-1.2)
[2024-03-25 11:56] LABS: TSH 1.88 uIU/ml (0.47-4.68)
== END ==
LOC: REG 10:00
PROVIDERS: ATTENDING PHYSICIAN Registered Nurse Psychiatric/Mental Health
DX: Z79.899 Other long term (current) drug therapy (principal)
CPT/HCPCS: 36415; 80053; 80164; 80178; 84443

== ENCOUNTER 2024-05-21 15:32 | Emergency (ER) | payer OTHER, SELFPAY ==
[2024-05-21 15:32] VITALS: BP 110/68
[2024-05-21] MEDS: TORADOL 30 MG IM (16:09)
--- NOTE | 2024-05-21 16:23 | ED.GENMED ---
History of Present Illness
General
Chief Complaint: Generalized Pain
Time Seen by Provider: 05/21/24 15:54
History of Present Illness
History of Present Illness:
54-year-old male presents to the emergency department for evaluation of left foot pain. Is been ongoing for close to 2 weeks. He admits he is homeless and walks frequently throughout the day. States that due to his homelessness he does not have
access to ice or elevation
Past History
Past History
ED Past Medical History: Psychiatric (Bipolar)
ED Past Surgical History: Orthopedic
Social History
Tobacco: Smoker
Alcohol: None
Drug: Marijuana
Personal: Single
Living: alone
Review of Systems
Review of Systems
Allergies reviewed?: Yes
All Other Systems: ROS reviewed and negative except as documented in HPI and ROS
Phy Exam
Physical Exam
Physical Exam:
GEN: Well appearing, NAD, WDWN
HEENT: Oral mucosa moist, no scleral icterus
Cardiac: Regular rate
Lung: No respiratory distress, no tachypnea
MSK: Tenderness to L plantar fascia, increased pain with forced digital extension
Skin: Good color, no pallor or jaundice, no rashes
Neuro: AO x3, moves all extremities freely
Psych: Calm, cooperative
Course
Orders/Labs/Results
Orders:
Orders
05/21/24 16:02
Ketorolac [Toradol] 30 mg IM NOW STA
Vital Signs
Initial and Last Documented VS:
Initial Vital Signs
Temp Pulse Resp BP Pulse Ox
98.0 F 87 18 110/68 95
05/21/24 15:32 05/21/24 15:32 05/21/24 15:32 05/21/24 15:32 05/21/24 15:32
Last Documented Vital Signs
Temp Pulse Resp BP Pulse Ox
98.0 F 87 18 110/68 95
05/21/24 15:32 05/21/24 15:32 05/21/24 15:32 05/21/24 15:32 05/21/24 15:32
MDM/Problems Addressed
MDM/Problems Addressed:
Discussed supportive care for plantar fasciitis. Unfortunately due to his lifting he cannot take NSAIDs routinely thus will recommend topical NSAIDs
*Critical Care Note
Total Time (30-74mins, 75-104mins- exclusive of procedures): Not Applicable
ED Attending Note
-
Portions of this chart may have been created with voice recognition software.� Occasional wrong word or��sound alike� substitutions may have occurred due to the inherent limitations of voice recognition software.
Discharge Plan
Departure
Patient Disposition: Home (Routine Discharge)
Date of Disposition: 05/21/24
Time of Disposition: 16:25
Patient with high blood pressure during this ER visit?: No
Discharge Problem:
Plantar fasciitis
Instructions: Plantar fasciitis
Prescriptions:
New
diclofenac sodium [Arthritis Pain (diclofenac)] 1 % gel
4 g topical QID Qty: 100 0RF
No Action
Depakote
750 mg PO HS
Depakote
125 mg PO AMHS
Effexor XR
300 mg PO AMHS
Xanax
2 mg PO DAILY
lithium carbonate
900 mg PO HS
prednisone 10 mg Tablet
See Rx Instructions .ROUTE .COMPLEX Qty: 30 0RF
Rx Instructions:
Take By Mouth:
40 mg daily x3 days, 30 mg daily x3 days,
20 mg daily x3 days, 10 mg daily x3 days.
tramadol 50 mg tablet
50 mg PO Q6H PRN (Reason: pain) Qty: 14 0RF
hydrocodone-acetaminophen 5-325 mg tablet
1 tab PO Q4H PRN (Reason: pain) Qty: 4 0RF
cyclobenzaprine 10 mg tablet
10 mg PO TID PRN (Reason: muscle spasm/pain) Qty: 14 0RF
ibuprofen 600 mg tablet
600 mg PO TID PRN (Reason: fever or pain) Qty: 20 0RF
acetaminophen [Pain Relief (acetaminophen)] 500 mg tablet
1,000 mg PO TID Qty: 20 0RF
oxycodone 5 mg tablet
5 mg PO Q8H PRN (Reason: Pain) Qty: 8 0RF
methocarbamol 750 mg tablet
750 - 1,500 mg PO HS Qty: 20 0RF
cyclobenzaprine 10 mg tablet
10 mg PO BID PRN (Reason: pain) Qty: 14 0RF
lidocaine [Lidoderm] 5 % adhesive patch,medicated
1 patch topical DAILY Qty: 15 0RF
furosemide [Lasix] 20 mg tablet
20 mg PO DAILY 7 Days Qty: 7 0RF
Referrals:
Tima Ramirez DO [Family Provider] -
Farooq Christopher DPM [Active] -
Interventions
Interventions:
*Risk Screen - Suicide Last Done: 05/21/24 15:32
*General Assessment Last Done: 05/21/24 15:32
*Neglect/Abuse Screening Last Done: 05/21/24 15:32
ED- Fall Risk Assessment Last Done: 05/21/24 16:58
*ED COVID-19 Vaccine History Last Done: 05/21/24 15:32
*Nursing Disposition Last Done: 05/21/24 16:58
Discharge Date and Time
Discharge Date/Time: 05/21/24 17:47
Print Language: LITHUANIAN
== END 2024-05-21 17:47 | disposition home or self-care (01) ==
LOC: EMR 15:32
PROVIDERS: EMERGENCY PHYSICIAN Emergency Medicine; FAMILY PHYSICIAN Family Medicine
DX: M72.2 Plantar fascial fibromatosis (principal); F17.200 Nicotine dependence, unspecified, uncomplicated; Z59.00 Homelessness unspecified
CPT/HCPCS: 96372; 99284

== ENCOUNTER 2024-05-23 14:16 | Emergency (ER) | payer OTHER, SELFPAY ==
[2024-05-23 14:26] VITALS: BP 126/75
--- NOTE | 2024-05-23 17:03 | ED.GENMED ---
History of Present Illness
General
Chief Complaint: Musculo-Skeletal Complaint
Source: patient
Exam Limitations: none
Time Seen by Provider: 05/23/24 15:18
Nursing documentation reviewed up to this point in time: agreed with
History of Present Illness
History of Present Illness:
54-year-old male presenting to the emergency department today with concerns of ongoing left-sided foot discomfort. Diagnosed with plantar fasciitis 2 days ago. Specifically coming in requesting a steroid shot to his foot. Denies any fevers
redness or warmth. Denies any specific trauma to the area
Past History
Past History
ED Past Medical History: Psychiatric (Bipolar)
ED Past Surgical History: Orthopedic
Social History
Tobacco: Smoker
Alcohol: None
Drug: Marijuana
Personal: Single
Living: alone
Review of Systems
Review of Systems
Allergies reviewed?: Yes
All Other Systems: ROS reviewed and negative except as documented in HPI and ROS
Phy Exam
Physical Exam
Physical Exam:
GENERAL: Alert , in no apparent distress
EYE: pupils equal and reactive
NECK: Supple, no significant adenopathy.
ENT: o/p clr, mmm.
CARDIAC: Regular rate and rhythm .
LUNGS: Clear breath sounds bilaterally, no acute respiratory distress, no wheezes/rales/rhonchi
ABDOMEN: Soft, without focal tenderness, no r/g, no cvat
NEUROLOGICAL: Alert and oriented, no focal neuro deficits
SKIN: Warm and dry, skin intact.
MUSCULOSKELETAL: Reproducible discomfort to the left foot at the arch throughout the region of the plantar fascia. No tenderness to the heel to the Achilles to the top of the foot to the toes or the ankle good range of motion of the ankle toes and
knees no edema, well perfused.
PSYCH: Normal and appropriate interaction.
Course
Orders/Labs/Results
Orders:
Orders
05/23/24 16:52
Dexamethasone [Decadron] 10 mg PO NOW STA
Ketorolac [Toradol] 30 mg IM NOW STA
CR Foot - Left Min 3 Views Urgent
Comment:
Reason For Exam: foot pain
Vital Signs
Initial and Last Documented VS:
Initial Vital Signs
Temp Pulse Resp BP Pulse Ox
98.0 F 80 18 126/75 96
05/23/24 14:26 05/23/24 14:26 05/23/24 14:26 05/23/24 14:26 05/23/24 14:26
Last Documented Vital Signs
Temp Pulse Resp BP Pulse Ox
98.0 F 80 18 126/75 96
05/23/24 14:26 05/23/24 14:26 05/23/24 14:05/23/24 14:26 05/23/24 14:26
MDM/Problems Addressed
MDM/Problems Addressed:
54-year-old male presenting to the emergency department today with concerns of ongoing left-sided foot pain. Was seen here few days ago diagnosed with likely plantar fasciitis. Here vital signs are normal no evidence of infection no redness or
warmth no evidence of deep space. Good pulses good range of motion. Patient was given medication for pain and also inflammation and given information for podiatry follow-up. Patient did admit to a long history of plantar fasciitis does have
inserts for his shoes to help with arch support that he claims that he can use in the future.
*Critical Care Note
Total Time (30-74mins, 75-104mins- exclusive of procedures): Not Applicable
ED Attending Note
-
Portions of this chart may have been created with voice recognition software.� Occasional wrong word or��sound alike� substitutions may have occurred due to the inherent limitations of voice recognition software.
Discharge Plan
Departure
Patient Disposition: Home (Routine Discharge)
Date of Disposition: 05/23/24
Time of Disposition: 18:03
Patient with high blood pressure during this ER visit?: No
Condition: Good
Covid-19: Not Applicable
Discharge Problem:
Foot pain
Instructions: Foot sprain
Prescriptions:
No Action
Depakote
750 mg PO HS
Depakote
125 mg PO AMHS
Effexor XR
300 mg PO AMHS
Xanax
2 mg PO DAILY
lithium carbonate
900 mg PO HS
prednisone 10 mg Tablet
See Rx Instructions .ROUTE .COMPLEX Qty: 30 0RF
Rx Instructions:
Take By Mouth:
40 mg daily x3 days, 30 mg daily x3 days,
20 mg daily x3 days, 10 mg daily x3 days.
tramadol 50 mg tablet
50 mg PO Q6H PRN (Reason: pain) Qty: 14 0RF
hydrocodone-acetaminophen 5-325 mg tablet
1 tab PO Q4H PRN (Reason: pain) Qty: 4 0RF
cyclobenzaprine 10 mg tablet
10 mg PO TID PRN (Reason: muscle spasm/pain) Qty: 14 0RF
ibuprofen 600 mg tablet
600 mg PO TID PRN (Reason: fever or pain) Qty: 20 0RF
acetaminophen [Pain Relief (acetaminophen)] 500 mg tablet
1,000 mg PO TID Qty: 20 0RF
oxycodone 5 mg tablet
5 mg PO Q8H PRN (Reason: Pain) Qty: 8 0RF
methocarbamol 750 mg tablet
750 - 1,500 mg PO HS Qty: 20 0RF
cyclobenzaprine 10 mg tablet
10 mg PO BID PRN (Reason: pain) Qty: 14 0RF
lidocaine [Lidoderm] 5 % adhesive patch,medicated
1 patch topical DAILY Qty: 15 0RF
furosemide [Lasix] 20 mg tablet
20 mg PO DAILY 7 Days Qty: 7 0RF
diclofenac sodium [Arthritis Pain (diclofenac)] 1 % gel
4 g topical QID Qty: 100 0RF
Referrals:
Alma Rosa Lemons DPM [[facility] Professional [facility]] - Follow up in 5-7 days
Tima Ramirez DO [Family Provider] -
Activity Restrictions/Additional Instructions:
You came to the emergency department today with concerns of foot discomfort. He please follow-up closely with the foot doctor. Return to the emergency department for any worsening, new or concerning symptoms.
Interventions
Interventions:
ED-Musculoskeletal Assessment Last Done: 05/23/24 17:12
Discharge Date and Time
Print Language: TANZANIAN
[2024-05-23] MEDS: TORADOL 30 MG IM (17:53)
[2024-05-23] MEDS: DECADRON 10 MG PO (17:54)
[2024-05-23 19:10] VITALS: BP 142/61
== END 2024-05-23 19:11 | disposition home or self-care (01) ==
LOC: EMR 14:16
PROVIDERS: EMERGENCY PHYSICIAN Emergency Medicine; FAMILY PHYSICIAN Family Medicine
DX: M79.672 Pain in left foot (principal); M72.2 Plantar fascial fibromatosis; F31.9 Bipolar disorder, unspecified; F17.200 Nicotine dependence, unspecified, uncomplicated
CPT/HCPCS: 99283; 96372; 73630

== ENCOUNTER → 2025-03-08 13:23 | Outpatient (REF) | payer OTHER, SELFPAY ==
[2025-03-08 14:31] LABS: Hematocrit 42.9 % (39.0-52.0); Hemoglobin 14.4 g/dL (13.0-18.0); Mean Corp Hgb Conc. 33.6 g/dL (33.0-37.0); Mean Corpuscular Volume 89.6 fL (80.0-94.0); Nucleated Red Blood Cells % 0 % (-); Platelet Count 178 10^3/uL (130-400); Red Cell Dist. Width 12.8 % (11.5-14.5)
[2025-03-08 14:42] LABS: Depakane < 10.0 ug/ml (50.0-120.0)
[2025-03-08 15:08] LABS: ALT (SGPT) 30 U/L (0-50); AST (SGOT) 27 U/L (17-59); Albumin 4.8 g/dl (3.5-5.0); Alkaline Phosphatase 62 U/L (38-126); Blood Urea Nitrogen 24 mg/dl (9-20); Calcium 10.3 mg/dl (8.4-10.2); Carbon Dioxide 27 mmol/L (22-30); Chloride 104 mmol/L (98-107); Glucose 97 mg/dl (70-99); HDL Cholesterol 77 mg/dl; LDL Cholesterol, Calculated 136 mg/dl; Lithium < 0.2 mmol/L (0.6-1.2); Potassium 4.7 mmol/L (3.5-5.1); Sodium 139 mmol/L (135-145); Total Protein 7.5 g/dl (6.3-8.2); Very Low Density Lipoprotein 20 mg/dl (0-30); eGFR > 60.00
[2025-03-08 15:40] LABS: TSH 0.56 uIU/ml (0.47-4.68)
[2025-03-09 09:59] LABS: Glycohemoglobin (HgbA1c) 4.9 % (4.0-5.6)
== END ==
LOC: REG 13:23
PROVIDERS: ATTENDING PHYSICIAN Psychiatry & Neurology Psychiatry; FAMILY PHYSICIAN Nurse Practitioner Family
DX: Z79.899 Other long term (current) drug therapy (principal)
CPT/HCPCS: 36415; 80053; 80061; 80164; 80178; 83036; 84443; 85025